=== PATIENT | female | born 1940 | race African-American/Black ===

== ENCOUNTER 2020-04-12 20:25 | Inpatient (IN) ==
[2020-04-12] MEDS ORDERED: FUROSEMIDE 100 MG/10 ML VIAL IV STA (21:19)
[2020-04-12] MEDS ORDERED: ALBUTEROL/IPRATROPIUM 3 ML NEB RESP TX STA (21:19)
[2020-04-12] MEDS ORDERED: ONDANSETRON 4 MG/2 ML VIAL IV STA (21:19)
[2020-04-12] MEDS ORDERED: NITROGLYCERIN 2% OINT 1 INCH/GM PACK TOP STA (21:19)
[2020-04-12 21:34] LABS: Basophils # 0.1 10*3/uL (0.0-0.2); Basophils % 0.4 % (0.0-0.8); Eosinophils # 0.1 10*3/uL (0.0-0.87); Eosinophils % 0.5 % (0.00-10.9); Hematocrit 31.1 VOL% (35.7-47.0); Hemoglobin 9.6 GM/DL (12.0-16.0); Immature Granulocytes % 0.6 %; Immature Granulocytes Absolute 0.11 #; Lymphocytes # 0.5 10*3/uL (1.4-4.0); Lymphocytes % 2.9 % (21.3-54.2); Mean Corpuscular HGB Conc 30.9 GM/DL (32-36); Mean Corpuscular Volume 89.6 FL (87-102); Mean Platelet Volume 11.5 FL (9.6-12.0); Monocytes % 5.8 % (1.7-12.7); Neutrophils % 89.8 % (38.7-73.9); Platelet Count 234 T/CUMM (130-400); Red Blood Count 3.47 MC/CUMM (3.8-5.5); Red Cell Distribution Width 16.2 % (9.3-17.3); White Blood Count 17.1 T/CUMM (4-12)
[2020-04-12 21:42] LABS: ABG Base Excess 0.5 MMOL/L (-2.5-2.5); ABG HCO3 24.8 MMOL/L (20-26); ABG Oxygen Saturation 92.8 % (95-100); ABG PCO2 39.1 MM HG (35-48); ABG PH 7.413 (7.35-7.45); ABG PO2 65.8 MM HG (80-95); ABG TCO2 22.9 MMOL/L (23-27); Allen Test Positive
[2020-04-12 21:43] LABS: INR 1.1; PT Patient Result 11.3 SECS (9.8-11.9); Partial Thromboplastin Time 25.4 SECS (23.9-33.8)
[2020-04-12 21:45] LABS: Albumin 3.5 G/DL (3.4-5.0); Bilirubin,Total 0.8 MG/DL (0.2-1.0); Calcium 8.9 MG/DL (8.5-10.1); Osmolality,Calculated 285.5 MOS/KG (273-304); Total Protein 6.5 G/DL (6.4-8.3)
[2020-04-12 22:04] LABS: Lymphocytes 2 % (20-55); Platelet Estimate Normal; Segmented Neutrophils 97 % (50-85); Total Cells Counted 100
[2020-04-12 22:05] LABS: Hypochromasia Slight
[2020-04-12] MEDS ORDERED: PIPERACILLIN/TAZOBACTAM 3,375 MG in SODIUM CHLORIDE 0.9% 100 ML IV STA (22:07)
[2020-04-12] MEDS ORDERED: AZITHROMYCIN INJ 500 MG in SODIUM CHLORIDE 0.9% 250 ML IV SCH (23:45)
[2020-04-12] MEDS ORDERED: guaiFENesin/DM ER 600-30 MG TABLET PO PRN (23:55)
[2020-04-12] MEDS ORDERED: ZALEPLON 5 MG CAPSULE PO PRN (23:55)
[2020-04-12] MEDS ORDERED: ONDANSETRON 4 MG/2 ML VIAL IV PRN (23:55)
[2020-04-12] MEDS ORDERED: PROMETHAZINE 25 MG/1 ML VIAL IM PRN (23:55)
[2020-04-12] MEDS ORDERED: DEXTROSE 50% 25 GM/50 ML VIAL IV PRN (23:55)
[2020-04-12] MEDS ORDERED: hydrALAZINE 20 MG/1 ML VIAL IV PRN (23:55)
[2020-04-12] MEDS ORDERED: GLUCAGON 1 MG VIAL IM PRN (23:55)
[2020-04-12] MEDS ORDERED: diphenhydrAMINE CAP 25 MG CAPSULE PO PRN (23:55)
[2020-04-12] MEDS ORDERED: NICOTINE 21 MG/24 HR PATCH TRANSDERM PRN (23:55)
[2020-04-12] MEDS ORDERED: ACETAMINOPHEN 325 MG TABLET PO PRN (23:55)
[2020-04-13] MEDS: cefTRIAXone 1,000 MG in SYRINGE 1 EACH IV SCH (01:03)
[2020-04-13] MEDS ORDERED: guaiFENesin 200 MG/10 ML UDCUP PO STA (05:03)
[2020-04-13 05:30] LABS: ABG Base Excess -1.2 MMOL/L (-2.5-2.5); ABG HCO3 23.1 MMOL/L (20-26); ABG Oxygen Saturation 82.7 % (95-100); ABG PH 7.359 (7.35-7.45); ABG PO2 51.6 MM HG (80-95); ABG TCO2 22.2 MMOL/L (23-27); Allen Test Positive
[2020-04-13 05:32] LABS: Basophils # 0.1 10*3/uL (0.0-0.2); Basophils % 0.5 % (0.0-0.8); Eosinophils % 0.3 % (0.00-10.9); Hematocrit 32.3 VOL% (35.7-47.0); Immature Granulocytes % 0.5 %; Immature Granulocytes Absolute 0.07 #; Lymphocytes # 1.3 10*3/uL (1.4-4.0); Lymphocytes % 9.7 % (21.3-54.2); Mean Platelet Volume 11.4 FL (9.6-12.0); Monocytes % 5.6 % (1.7-12.7); Neutrophils % 83.4 % (38.7-73.9); Platelet Count 286 T/CUMM (130-400); Red Blood Count 3.63 MC/CUMM (3.8-5.5); White Blood Count 13.3 T/CUMM (4-12)
[2020-04-13] MEDS ORDERED: ALBUTEROL INHALER 18 GM INH PRN (05:40)
[2020-04-13 06:06] LABS: Calcium 8.8 MG/DL (8.5-10.1); Osmolality,Calculated 284.5 MOS/KG (273-304)
[2020-04-13 07:54] LABS: ABG Base Excess -0.9 MMOL/L (-2.5-2.5); ABG HCO3 23.5 MMOL/L (20-26); ABG Oxygen Saturation 90.1 % (95-100); ABG PCO2 39.9 MM HG (35-48); ABG PH 7.386 (7.35-7.45); ABG PO2 59.9 MM HG (80-95); ABG TCO2 21.9 MMOL/L (23-27); Pt O2 Delivery Device Other
[2020-04-13] MEDS ORDERED: HEPARIN 5,000 UNIT/1 ML VIAL SUBCUT SCH (09:00)
[2020-04-13] MEDS ORDERED: amLODIPine 10 MG TABLET PO SCH (09:00)
[2020-04-13] MEDS ORDERED: PANTOPRAZOLE 40 MG TABLET PO SCH (09:00)
[2020-04-13] MEDS: AZITHROMYCIN 250 MG TABLET PO SCH (09:22)
[2020-04-13] MEDS: DOCUSATE SODIUM 100 MG CAPSULE PO SCH ×2 (09:23→21:38)
[2020-04-13] MEDS: ALBUTEROL INHALER 18 GM INH SCH ×6 (12:07→23:16)
[2020-04-13] MEDS ORDERED: GLUCAGON 1 MG VIAL IM PRN (14:30)
[2020-04-13] MEDS ORDERED: DEXTROSE 50% 25 GM/50 ML VIAL IV PRN (14:30)
[2020-04-13] MEDS ORDERED: DEXAMETHASONE 10 MG/1 ML VIAL IV ONE (14:31)
[2020-04-13 14:58] LABS: ABG Base Excess -3.8 MMOL/L (-2.5-2.5); ABG PCO2 32.9 MM HG (35-48); ABG PH 7.401 (7.35-7.45); Pt O2 Delivery Device Other
[2020-04-13 17:23] LABS: Hepatitis B Core IgM Quant 0.15 Index; Hepatitis B Surface Ag Quant < 0.10 Index; Hepatitis B Surface Ag Result Negative (Negative); Hepatitis C Virus Ab Quant 0.05 Index; Hepatitis C Virus Ab Result Negative (Negative)
[2020-04-13] MEDS: INSULIN REGULAR 100 UNIT/ML SUBCUT SCH ×2 (17:29→21:20)
[2020-04-13] MEDS: SEVELAMER CARBONATE 800 MG TABLET PO SCH (17:44)
[2020-04-13] MEDS: HEPARIN 5,000 UNIT/1 ML VIAL SUBCUT SCH (17:45)
[2020-04-13] MEDS: ASCORBIC ACID 500 MG TABLET PO SCH (21:38)
[2020-04-13] MEDS: SIMVASTATIN 10 MG TABLET PO SCH (21:38)
[2020-04-14] MEDS: HEPARIN 5,000 UNIT/1 ML VIAL SUBCUT SCH ×3 (01:17→18:00)
[2020-04-14] MEDS: ALBUTEROL INHALER 18 GM INH SCH ×6 (04:09→23:55)
[2020-04-14] MEDS: SEVELAMER CARBONATE 800 MG TABLET PO SCH ×3 (08:26→17:54)
[2020-04-14] MEDS: ASCORBIC ACID 500 MG TABLET PO SCH ×2 (08:27→21:49)
[2020-04-14] MEDS: LOSARTAN 25 MG TABLET PO SCH (08:27)
[2020-04-14] MEDS: DOCUSATE SODIUM 100 MG CAPSULE PO SCH ×2 (08:27→21:48)
[2020-04-14] MEDS: atenoloL 25 MG TABLET PO SCH (08:27)
[2020-04-14] MEDS: PANTOPRAZOLE 40 MG TABLET PO SCH (08:28)
[2020-04-14] MEDS: amLODIPine 10 MG TABLET PO SCH (08:28)
[2020-04-14] MEDS: POTASSIUM CHLORIDE 10 MEQ TABLET PO SCH (08:28)
[2020-04-14] MEDS: AZITHROMYCIN 250 MG TABLET PO SCH (08:29)
[2020-04-14] MEDS: ZINC SULFATE 220 MG CAPSULE PO SCH (08:29)
[2020-04-14] MEDS: INSULIN REGULAR 100 UNIT/ML SUBCUT SCH ×4 (09:52→21:49)
[2020-04-14 10:12] LABS: Calcium 9.1 MG/DL (8.5-10.1); Osmolality,Calculated 273.4 MOS/KG (273-304)
[2020-04-14 10:20] LABS: Troponin I 0.062 NG/ML (0.00-0.045)
[2020-04-14] MEDS: cefTRIAXone 1,000 MG in SYRINGE 1 EACH IV SCH (13:14)
[2020-04-14] MEDS: SIMVASTATIN 10 MG TABLET PO SCH (21:49)
[2020-04-15] MEDS: HEPARIN 5,000 UNIT/1 ML VIAL SUBCUT SCH ×2 (01:31→08:39)
[2020-04-15] MEDS: ALBUTEROL INHALER 18 GM INH SCH ×3 (03:43→12:10)
[2020-04-15 06:48] LABS: Calcium 8.7 MG/DL (8.5-10.1); Osmolality,Calculated 278.1 MOS/KG (273-304)
[2020-04-15] MEDS ORDERED: POTASSIUM CHLORIDE 20 MEQ TABLET PO ONE (07:28)
[2020-04-15] MEDS: INSULIN REGULAR 100 UNIT/ML SUBCUT SCH ×2 (08:32→12:10)
[2020-04-15] MEDS: cefTRIAXone 1,000 MG in SYRINGE 1 EACH IV SCH (08:34)
[2020-04-15] MEDS: POTASSIUM CHLORIDE 10 MEQ TABLET PO SCH (08:35)
[2020-04-15] MEDS: SEVELAMER CARBONATE 800 MG TABLET PO SCH ×2 (08:35→12:11)
[2020-04-15] MEDS: amLODIPine 10 MG TABLET PO SCH (08:36)
[2020-04-15] MEDS: AZITHROMYCIN 250 MG TABLET PO SCH (08:36)
[2020-04-15] MEDS: ASCORBIC ACID 500 MG TABLET PO SCH (08:37)
[2020-04-15] MEDS: atenoloL 25 MG TABLET PO SCH (08:37)
[2020-04-15] MEDS: LOSARTAN 25 MG TABLET PO SCH (08:38)
[2020-04-15] MEDS: ZINC SULFATE 220 MG CAPSULE PO SCH (08:38)
[2020-04-15] MEDS: PANTOPRAZOLE 40 MG TABLET PO SCH (08:38)
[2020-04-15] MEDS: DOCUSATE SODIUM 100 MG CAPSULE PO SCH (08:39)
[2020-04-15 12:49] VITALS: BP 178/69
== END 2020-04-15 13:55 | disposition home health service (06) | DRG 291 ==
LOC: EDBD → EDUNIT# → N.ED 20:25 → SUATTDRO 04-13 01:34 → N.EDINP 04-13 01:34 → N.2E 04-13 12:19 → N.ICU 04-13 15:50 → N.3E 04-14 16:09
PROVIDERS: ADMIT Internal Medicine; ATTEND Emergency Medicine

== ENCOUNTER 2020-06-17 19:44 | Observation (INO) ==
[2020-06-17] MEDS ORDERED: DEXTROSE 50% 25 GM/50 ML VIAL IV PRN (23:51)
[2020-06-17] MEDS ORDERED: ACETAMINOPHEN 325 MG TABLET PO PRN (23:51)
[2020-06-17] MEDS ORDERED: GLUCAGON 1 MG VIAL IM PRN (23:51)
[2020-06-18] MEDS: HEPARIN 5,000 UNIT/1 ML VIAL SUBCUT SCH ×4 (00:56→21:09)
[2020-06-18] MEDS: hydrOXYzine HCL 25 MG TABLET PO SCH ×2 (00:56→21:09)
[2020-06-18 06:23] LABS: Basophils # 0.1 10*3/uL (0.0-0.2); Basophils % 0.7 % (0.0-0.8); Eosinophils # 0.1 10*3/uL (0.0-0.87); Eosinophils % 1.9 % (0.00-10.9); Hematocrit 35.6 VOL% (35.7-47.0); Hemoglobin 11.2 GM/DL (12.0-16.0); Immature Granulocytes % 0.3 %; Immature Granulocytes Absolute 0.02 #; Lymphocytes # 0.9 10*3/uL (1.4-4.0); Lymphocytes % 12.3 % (21.3-54.2); Mean Corpuscular HGB Conc 31.5 GM/DL (32-36); Mean Corpuscular Volume 80.4 FL (87-102); Mean Platelet Volume 11.1 FL (9.6-12.0); Monocytes % 5.7 % (1.7-12.7); Neutrophils % 79.1 % (38.7-73.9); Platelet Count 175 T/CUMM (130-400); Red Blood Count 4.43 MC/CUMM (3.8-5.5); Red Cell Distribution Width 16.9 % (9.3-17.3); White Blood Count 7.3 T/CUMM (4-12)
[2020-06-18 06:41] LABS: Hypochromasia 1+; Platelet Estimate Adequate
[2020-06-18 06:49] LABS: Calcium 10.6 MG/DL (8.5-10.1); Osmolality,Calculated 287.3 MOS/KG (273-304)
[2020-06-18] MEDS ORDERED: POTASSIUM CHLORIDE 20 MEQ TABLET PO ONE (07:26)
[2020-06-18] MEDS: amLODIPine 10 MG TABLET PO SCH (08:06)
[2020-06-18] MEDS: SEVELAMER CARBONATE 800 MG TABLET PO SCH ×3 (08:06→18:44)
[2020-06-18] MEDS: carvediloL 6.25 MG TABLET PO SCH ×2 (08:06→18:44)
[2020-06-18] MEDS ORDERED: atenoloL 25 MG TABLET PO SCH (09:00)
[2020-06-18] MEDS ORDERED: hydrALAZINE 20 MG/1 ML VIAL IV PRN (11:06)
[2020-06-18] MEDS: NITROGLYCERIN 2% OINT 1 INCH/GM PACK TOP SCH ×2 (11:46→19:20)
[2020-06-18 14:26] LABS: Hepatitis B Surface Ag Quant < 0.10 Index; Hepatitis B Surface Ag Result Negative (Negative)
[2020-06-18] MEDS ORDERED: SIMVASTATIN 10 MG TABLET PO SCH (21:00)
[2020-06-18] MEDS ORDERED: LOSARTAN 25 MG TABLET PO SCH (21:00)
[2020-06-19] MEDS: NITROGLYCERIN 2% OINT 1 INCH/GM PACK TOP SCH ×3 (00:11→13:23)
[2020-06-19 04:29] VITALS: BP 156/64
[2020-06-19] MEDS: HEPARIN 5,000 UNIT/1 ML VIAL SUBCUT SCH (05:34)
[2020-06-19 07:48] LABS: Basophils # 0.1 10*3/uL (0.0-0.2); Basophils % 0.7 % (0.0-0.8); Eosinophils # 0.2 10*3/uL (0.0-0.87); Hematocrit 35.4 VOL% (35.7-47.0); Immature Granulocytes % 0.3 %; Immature Granulocytes Absolute 0.02 #; Lymphocytes # 1.3 10*3/uL (1.4-4.0); Lymphocytes % 16.6 % (21.3-54.2); Mean Corpuscular HGB Conc 31.1 GM/DL (32-36); Mean Corpuscular Volume 80.6 FL (87-102); Monocytes % 6.3 % (1.7-12.7); Neutrophils % 73.1 % (38.7-73.9); Red Blood Count 4.39 MC/CUMM (3.8-5.5); Red Cell Distribution Width 16.9 % (9.3-17.3); White Blood Count 7.6 T/CUMM (4-12)
[2020-06-19 07:50] LABS: Platelet Count 118 T/CUMM (130-400)
[2020-06-19 08:04] LABS: Calcium 9.9 MG/DL (8.5-10.1); Osmolality,Calculated 276.7 MOS/KG (273-304)
[2020-06-19 08:08] LABS: Eosinophils 3 % (0-10); Hypochromasia 1+; Lymphocytes 19 % (20-55); Platelet Estimate Decreased; Segmented Neutrophils 71 % (50-85); Total Cells Counted 100
[2020-06-19] MEDS: amLODIPine 10 MG TABLET PO SCH (09:53)
[2020-06-19] MEDS: SEVELAMER CARBONATE 800 MG TABLET PO SCH ×2 (09:53→13:14)
[2020-06-19] MEDS: carvediloL 6.25 MG TABLET PO SCH (09:53)
== END 2020-06-19 15:30 | disposition home health service (06) ==
LOC: SUATTDRO 22:10 → N.TELEN 22:10 → INTOOBSV 22:10
PROVIDERS: ADMIT Internal Medicine; ATTEND Internal Medicine